=== PATIENT | female | born 1990 | race Caucasian/White ===

== ENCOUNTER 2017-08-02 18:53 | Inpatient (IN) | payer MEDICAID ==
[~2017-08-02] VITALS: Ht 162.6 cm; Wt 88.0 kg
[2017-08-02 20:28] LABS: APPEARANCE,URINE Clear (CLEAR); BILIRUBIN,URINE Negative (NEGATIVE); COLOR,URINE Yellow (YELLOW); GLUCOSE, URINE (UA) Negative (NEGATIVE); KETONES,URINE Negative (NEGATIVE); LEUKOCYTE ESTERASE ,URINE Moderate (NEGATIVE); NITRATE,URINE Negative (NEGATIVE); OCCULT BLOOD,URINE Negative (NEGATIVE); PH,URINE 6.5 (5.0-8.0); PROTEIN,URINE Negative (NEGATIVE); UROBILINOGEN,URINE 0.2 mg/dL (0.2-1.0)
[2017-08-02 20:35] LABS: BACTERIA,URINE Few /HPF (None Seen); RBC,URINE None Seen /HPF (0-1)
[2017-08-02 21:16] LABS: HEMATOCRIT 38.3 % (36-48); MEAN CORPUSCULAR HEMOGLOBIN 29.6 pg (27.0-33.0); MEAN CORPUSCULAR HGB CONC 33.2 g/dL (32.0-36.0); MEAN CORPUSCULAR VOLUME 89.1 fL (79-99); PLATELET COUNT (AUTO) 243 K/uL (130-400); RED CELL DISTRIBUTION WIDTH 13.7 % (11.0-15.5); WHITE BLOOD COUNT (AUTO) 14.4 K/uL (4.8-10.8)
[2017-08-02] MEDS ORDERED: DINOPROSTONE 10 MG VAGINAL SUPP VG ONE (21:40)
[2017-08-02] MEDS: LACTATED RINGERS 1000ML 1,000 ML IV PRN (21:44)
[2017-08-03] MEDS: LACTATED RINGERS 1000ML 1,000 ML IV PRN (03:12)
[2017-08-03] MEDS ORDERED: LACTATED RINGERS 1000ML 1,000 ML IV ONE (06:02)
[2017-08-03] MEDS ORDERED: OXYTOCIN 10 USP UNITS/ML ONE ×2 (06:02→10:06)
[2017-08-03] MEDS ORDERED: OXYTOCIN 10 USP UNITS/ML 20 UNIT in LACTATED RINGERS 1000ML 1,000 ML IV SCH (07:00)
[2017-08-03 07:10] LABS: RAPID PLASMA REAGIN NONREACTIVE (NONREACTIVE)
[2017-08-03] MEDS ORDERED: MEPERIDINE-PF 50 MG/ML SYG ONE (07:36)
[2017-08-03] MEDS ORDERED: PROMETHAZINE HCL 25 MG/ML 1ML AMPULE IM ONE (07:36)
[2017-08-03] MEDS ORDERED: PROMETHAZINE HCL 25 MG/ML 1ML AMPULE IM PRN (07:45)
[2017-08-03] MEDS ORDERED: MEPERIDINE-PF 50 MG/ML SYG IVP PRN (07:45)
[2017-08-03] MEDS ORDERED: ACETAMINOPHEN 325 MG TAB PO PRN (08:30)
[2017-08-03] MEDS ORDERED: OXYTOCIN-LR 20 UNITS/1000 ML 1,000 ML IV SCH (08:30)
[2017-08-03] MEDS ORDERED: IBUPROFEN 600 MG TABLET PO PRN (08:30)
[2017-08-03] MEDS ORDERED: MEASLES/MUMPS/RUBELLA VACCINE, LIVE 0.5 ML/VIAL SQ PRN (08:30)
[2017-08-03] MEDS ORDERED: BENZOCAINE/LANOLIN/ALOE VERA 60 ML AEROSOL TP PRN (08:30)
[2017-08-03] MEDS ORDERED: DIPH,PERTUSS(ACELL),TET VAC/PF 0.5 ML VIAL IM PRN (08:30)
[2017-08-03] MEDS ORDERED: WITCH HAZEL 1 PAD TP PRN (08:30)
[2017-08-03] MEDS ORDERED: LANOLIN 30GM OINTMENT TP PRN (08:30)
[2017-08-03] MEDS ORDERED: DOCUSATE SODIUM 100 MG CAP PO SCH (09:00)
[2017-08-03 10:10] VITALS: BP 120/61
[2017-08-03 11:37] VITALS: BP 112/66
[2017-08-03] MEDS ORDERED: PNV1TABL17 PO (12:23)
[2017-08-03 15:54] VITALS: BP 110/71
[2017-08-03 19:25] VITALS: BP 110/55
[2017-08-03 23:03] VITALS: BP 98/58
[2017-08-04 03:21] VITALS: BP 93/58
[2017-08-04 03:24] VITALS: BP 108/66
[2017-08-04 07:08] LABS: HEMATOCRIT 33.8 % (36-48); MEAN CORPUSCULAR HEMOGLOBIN 30.3 pg (27.0-33.0); MEAN CORPUSCULAR HGB CONC 33.4 g/dL (32.0-36.0); MEAN CORPUSCULAR VOLUME 90.6 fL (79-99); PLATELET COUNT (AUTO) 192 K/uL (130-400); RED BLOOD CELL COUNT(AUTO) 3.73 MIL/uL (4.00-5.50)
[2017-08-04 07:24] LABS: HEPATITIS Bs ANTIGEN SCREEN P Negative (Negative)
[2017-08-04 07:25] VITALS: BP 105/70
[2017-08-04] MEDS ORDERED: MO6B PO (10:56)
[2017-08-04 11:22] VITALS: BP 112/70
== END 2017-08-04 11:45 | disposition home or self-care (01) | DRG 560 ==
LOC: LDH 18:53 → WSH 08-03 10:10
PROVIDERS: ADMIT Obstetrics & Gynecology; ATTEND Obstetrics & Gynecology
PROC: 10E0XZZ Delivery of Products of Conception, External Approach (ICD-10-PCS; principal; 2017-08-03)
PROC: 3E0234Z Introduction of Serum, Toxoid and Vaccine into Muscle, Percutaneous Approach (ICD-10-PCS; 2017-08-03)
PROC: 3E0134Z Introduction of Serum, Toxoid and Vaccine into Subcutaneous Tissue, Percutaneous Approach (ICD-10-PCS; 2017-08-03)
DX: O80 Encounter for full-term uncomplicated delivery (principal); Z23 Encounter for immunization; Z37.0 Single live birth; Z3A.39 39 weeks gestation of pregnancy
CPT/HCPCS: 36415; 81001; 85027; 86592; 86701; 86850; 86900; 86901; 87340; 87390; A4606; J2175; J2550; J2590; J7120

== ENCOUNTER 2018-07-25 11:09 | Emergency (ER) | payer MEDICAID, OTHER ==
[~2018-07-25 11:09] MED LIST: MO6B PO; PNV1TABL17 PO
== END 2018-07-25 11:30 | disposition home or self-care (01) ==
LOC: EDH 11:09
DX: J03.80 Acute tonsillitis due to other specified organisms (principal); B95.8 Unspecified staphylococcus as the cause of diseases classified elsewhere